=== PATIENT | female | born 1980 | race African-American/Black ===

== ENCOUNTER 2017-08-26 16:00 | Inpatient (IN) | payer BC ==
--- NOTE | 2017-09-09 11:01 | HP ---
HISTORY OF PRESENT ILLNESS: Ms. Nuno is a 36-year-old female with history of sinha bmucosal uterine fibroid on ultrasound. She has had a previous tubal ligation. She has been having increasingly heavy menstrual cycles that have resulted with anemia with hemoglobin documented of 10. She did consider possible endometrial ablation with fibroid resection, but now desires definitive sinha rgical therapy. PAST MEDICAL HISTORY: Depression for which she is on bupropion. PAST SURGICAL HISTORY: A tubal ligation. OB HISTORY: Two spontaneous vaginal deliveries. SOCIAL HISTORY: Nontobacco, minimal alcohol use. She is employed. Currently . ALLERGIES: She has no known drug allergies. FAMILY HISTORY: Hypertension in her father, heart disease in her father, grandmother had breast canc er. PHYSICAL EXAMINATION: VITAL SIGNS: Her blood pressure is 120/80, pulse rate 66, respirations 18, height 64 inches with a w eight of 141. BMI 24.2. HEENT: Within normal limits. CHEST: Clear to auscultation. HEART: Regular rate and rhythm. S1, S2 heart sounds, no murmurs, rubs or gallops. ABDOMEN: Soft, nontender, no palpable masses. PELVIC: Vulva and vagina had no lesions. Her uterus is approximately 8-10 weeks size. Cervix had n o lesions. Pap smear obtained 2017 was negative and negative HPV. Adnexa were nontender with no mas ses. Pelvic ultrasound showed uterus measuring 8 x 4.9 cm, fibroid 2.5 x 2.5 cm with the endometrial cavity, endometrium is also noted 8 mm, right and left ovaries were seen which were normal in appear ance. CURRENT MEDICATIONS: Meloxicam 7.5 mg daily as needed, bupropion 150 mg daily. ASSESSMENT: This is a 36-year-old female, , with prior tubal ligation, now wit h symptomatic uterine fibroids with menorrhagia and dysmenorrhea. The patient is desiring definitive surgical therapy. We planned for a robotic total laparoscopic hysterectomy with bilateral salpingec ayan. Risks and complications of procedure have been discussed at her preop visit and she is set for surgery on 09/15/2017.
[2017-09-09 13:07] VITALS: BMI 24.0
[2017-09-15] MEDS ORDERED: CeleCOXIB 100 MG CAP ONE ×2 (05:57→06:00)
[2017-09-15] MEDS ORDERED: Famotidine/PF 20 mg/2ml Vial ONE ×2 (05:57→05:58)
[2017-09-15] MEDS ORDERED: Gabapentin 300 MG CAP ONE (05:57)
[2017-09-15] MEDS ORDERED: CEFAZOLIN/Water 2 GM/20 ML SYRINGE ONE (05:58)
[2017-09-15] MEDS ORDERED: Fentanyl 250 MCG/5 ML VIAL ONE (06:08)
[2017-09-15] MEDS ORDERED: Lidocaine 2% Jelly 5 ML TUBE ONE (06:08)
[2017-09-15] MEDS ORDERED: Ondansetron HCl/PF 4 MG/2 ML Vial ONE ×2 (06:08→11:57)
[2017-09-15] MEDS ORDERED: Midazolam HCl 2 mg/2 ml Vial ONE ×2 (06:08→07:20)
[2017-09-15] MEDS ORDERED: Bupivacaine HCl 0.5%/Epinephrine 1:200,000/PF 30 ml Vial ONE (06:33)
[2017-09-15] MEDS ORDERED: Bisacodyl 10 MG SUPP PR PRN (09:36)
[2017-09-15] MEDS ORDERED: traMADol HCl 50 MG TAB PO PRN ×2 (09:36)
[2017-09-15] MEDS ORDERED: Zolpidem Tartrate 5 MG TAB PO PRN (09:36)
[2017-09-15] MEDS ORDERED: Simethicone Chewable 80 MG TAB PO PRN (09:36)
[2017-09-15] MEDS ORDERED: Ondansetron HCl/PF 4 MG/2 ML Vial IVP PRN (09:36)
[2017-09-15] MEDS ORDERED: Morphine 5 MG/ML SYRINGE SLOW IVP PRN (09:36)
[2017-09-15] MEDS ORDERED: diphenhydrAMINE 25 MG CAP PO PRN (09:36)
[2017-09-15] MEDS ORDERED: Promethazine HCl 25 MG/ML VIAL IM PRN (09:36)
[2017-09-15] MEDS ORDERED: Fentanyl 100 MCG/2 ML VIAL ONE (09:57)
--- NOTE | 2017-09-15 10:12 | OP ---
DATE OF PROCEDURE: 09/15/2017 PREOPERATIVE DIAGNOSES: 1. A 36-year-old -[place] female with symptomatic 12-week uterine fibroids with menorrhagia and resulting anemia from chronic blood loss. 2. Desires definitive surgical therapy. POSTOPERATIVE DIAGNOSES: 1. A 36-year-old -[place] female with symptomatic 12-week uterine fibroids with menorrhagia and resulting anemia from chronic blood loss. 2. Desires definitive surgical therapy. PROCEDURES PERFORMED: Robotic total laparoscopic hysterectomy and bilateral salpingectomy. SURGEON: Sherlyn Bonilla M.D. LICENSED AND CERTIFIED MIDWIFE: Keaton Madrigal M.D. ANESTHESIA: General endotracheal. ESTIMATED BLOOD LOSS: 50 mL. COMPLICATIONS: None. PATHOLOGY: Uterus, tubes, bilateral fallopian tubes and cervix. ANTIBIOTICS: Two grams of Ancef outside installation machinist to the OR. FINDINGS: 1. Normal appearing bilateral ovaries and remnant of fallopian tubes, previous tubal ligation. 2. A 10-week size uterus with intramural fibroid noted and subserosal fibroid seen. 3. Clear urine present in Rivera catheter post-procedure and bilateral ureteral peristalsis noted pos t-procedure. DISPOSITION: To the recovery room stable. DESCRIPTION OF OPERATIVE PROCEDURE: Patient previously received informed consent in regards to the s urgery. She was taken back to the operating room where she received a general endotracheal anestheti c agent without complications. She was placed in the dorsal lithotomy position with the use of Leo stirrups and prepped and draped in usual sterile fashion. A Rivera catheter was placed and a side-ar m speculum was placed in the vagina. The anterior lip of cervix was grasped with a single-tooth naa culum. The uterus sounded to 9 cm. A size 8 cm MALU uterine manipulator 4.0 cm cervical cup was the n fitted and placed. Tenaculum and speculum were then removed. Attention was then turned to the abd omen where perspective trocar sites were infiltrated with 0.5% Marcaine with epinephrine. A 12 mm sinha praumbilical incision was made and a Veress needle entered to the peritoneal cavity. Patient's press ure was noted to be less than 5 mm. Abdomen was insufflated to patient pressure of 15, approximately 4 liters of carbon dioxide gas. Veress needle was then removed. A size 12 [address] was then place d. Laparoscope was introduced through the trocar sleeve confirming proper entry. An additional bila teral lower quadrant 8 mm robotic trocars were placed under laparoscopic guidance along with 11 mm ri ght upper quadrant assistant food service manager port. The patient was then placed in Trendelenburg position and then th e robot was docked in usual fashion. I proceeded to carry out the surgery from the operative console and my assistants remained at the bedside. The uterus was elevated in the pelvis and the previously mentioned findings were noted. The left fallopian tube was grasped at the fimbria by my assistant food service manager a nd bipolar fenestrated cautery was utilized to coagulate the mesosalpinx and the monopolar scissors w ere utilized to incise under the tube along the cauterized mesosalpinx, removing the fallopian tube t hrough the right upper quadrant assistant food service manager port. Left uteroovarian ligament was coagulated and transe cted in serial coagulation transection of the uterine broad ligament, hugging close to uterus was car ried down to the left round ligament was reached. It was coagulated and transected. Anterior leaf o f the broad ligament was entered and the vesicouterine peritoneum was dissected and transected in a l ayering technique dropping the bladder atraumatically past the cervical vaginal angle, which was visu alized in the intention of the cervical cup. Uterine vessels were then skeletonized. They were then cauterized at the internal cervical os region. This was then repeated in likewise fashion on the pa travisnt's right side again starting by excising the fallopian tube, coagulating and transecting the torres martinez roovarian ligament and serial coagulation of broad ligament, hugging close to the specimen to the rig ht lower round ligament was reached. It was coagulated and transected. The anterior leaf of the bro ad ligament was entered and it was then transected in a layering technique dropping the bladder atrau matically past the cervical vaginal angle. Uterine vessels again were skeletonized in a layering roxanna hnique dropping the ureter were lateral from the internal cervical os region. The vessels were then coagulated internal cervical os region and transected. The anterior colpotomy was then performed sta rting 12 to 3 and 12 to 9 o'clock position and then the vessels at 3 and 9 o'clock position were coag ulated with bipolar fenestrated cautery and the posterior colpotomy was completed from 6 to 3 and 6 t o 9 in likewise fashion and monopolar scissors. The specimen was removed and placed in the vaginal v jovanny to secure pneumoperitoneum. The vaginal cuff was inspected and cauterized remaining areas of bleeding for hemostasis. The monopo lar scissors had been switched with ely needle transit mixer driver. Stratafix suture was then utilized to close the vaginal cuff in full thickness closure starting in the right angle of the vaginal cuff into the m idline. The needle of the suture broke and that was retrieved out through the surgical asst sit e. An additional Stratafix suture was then brought in and the left angle was then started to be clos ed full thickness closure in running continuous fashion with double layer closure of vaginal cuff wit h Stratafix securing hemostasis. The suture needle was then removed through the right upper quadrant assistant food service manager port. The pelvis was irrigated and suctioned and pedicle sites were inspected. Hemostasi s was confirmed. Rivera catheter was draining clear urine. Bilateral ureteral peristalsis was visual ized. Again, hemostasis down the pedicle sites and vaginal cuff were confirmed. The excess carbon d ioxide gas was released from the abdomen after the robot had been undocked. Trocars were removed. A deep stitch of [id number] suture of 0 Vicryl was placed in the supraumbilical fascial defect. The remainder of the sites were closed with 4-0 Monocryl subcuticular and Dermabond. The vaginal cuf f was inspected with a sponge stick and hemostasis of the vaginal cuff vaginally was confirmed. Surg katie was terminated and the patient was awakened from her anesthesia and transferred to the recovery r oom in stable condition.
[2017-09-15] MEDS ORDERED: HYDROmorphone 0.5 MG/0.5 ML SYRINGE ONE (10:18)
[2017-09-15] MEDS: Lactated Ringer's 1,000 ML IV SCH ×2 (11:54→20:58)
[2017-09-15] MEDS: Acetaminophen 1,000 MG in Premix Bag 1 BAG IVPB SCH ×2 (11:54→18:07)
[2017-09-15] MEDS ORDERED: Glycopyrrolate 0.2 MG/ML 5 ML SYRINGE ONE (11:57)
[2017-09-15] MEDS ORDERED: Dexamethasone 20 MG/5 ML VIAL ONE (11:57)
[2017-09-15] MEDS ORDERED: PROPOFOL 200 MG/20 ML VIAL ONE (11:57)
[2017-09-15] MEDS ORDERED: Lidocaine 1% PF 5 ML VIAL ONE (11:57)
[2017-09-15] MEDS: Ibuprofen 800 MG TAB PO SCH ×2 (14:09→22:35)
[2017-09-16] MEDS: Acetaminophen 1,000 MG in Premix Bag 1 BAG IVPB SCH ×2 (00:39→05:31)
[2017-09-16] MEDS: Ibuprofen 800 MG TAB PO SCH (05:30)
[2017-09-16] MEDS: Lactated Ringer's 1,000 ML IV SCH (05:31)
[2017-09-16 05:49] LABS: Mean Corpuscular HGB CONC 33.6 g/dL (32.0-36.0); Mean Corpuscular Hemoglobin 32.7 pg (27.0-31.0); Mean Corpuscular Volume 97.2 fl (81.0-99.0); Mean Platelet Volume 6.3 fL (7.4-10.4); Platelet Count 295 thou/uL (130-400); RBC Distribution Width 11.9 % (11.5-14.5); Red Blood Cell (RBC) Count 3.04 mill/uL (4.20-5.40); White Blood Cell (WBC) Count 8.5 thou/uL (4.8-10.8)
[2017-09-16 08:45] VITALS: BP 115/63; TEMP 99
--- NOTE | 2017-09-16 09:52 | PDOC.PP ---
Post Progress Note Post Day #: 1 PO intake tolerated: yes Flatus: yes Ambulation: yes Vital Signs (12 hours) Temp Pulse Resp BP Pulse Ox 09/16/17 08:45 99.0 F 72 20 09/16/17 08:44 99.0 F 72 20 115/63 09/16/17 05:25 99.1 F 60 16 116/67 99 09/16/17 00:35 99.1 F 84 16 98/57 L 99 Weight Weight 140 lb - Physical Examination General: NAD Respiratory: clear to auscultation bilaterally, non-labored breathing Abdominal: + bowel sounds (trochar sites clean/dry/intact) Result Diagrams: 09/16/17 05:35 - Assessment/Plan doing well post op day 1 from robotic [facility] d/c home/ f/u 2 and 6 weeks.
--- NOTE | 2017-09-16 10:31 | OP ---
DATE OF PROCEDURE: 09/15/2017 PREOPERATIVE DIAGNOSES: A 36-year-old female, G2, P2 with tubal ligation with 10-we ek symptomatic uterine fibroids, menorrhagia with resulting anemia, dysmenorrhea. POSTOPERATIVE DIAGNOSES: A 36-year-old female, G2, P2 with tubal ligation with 10-w [place] symptomatic uterine fibroids, menorrhagia with resulting anemia, dysmenorrhea. PROCEDURE: Robotic total laparoscopic hysterectomy and removal of bilateral tubal segments. SURGEON: Sherlyn oBnilla M.D. PROFESSOR OF ECONOMICS SURGEON: Keaton Madrigal M.D. ANESTHESIA: General endotracheal. ESTIMATED BLOOD LOSS: 500 mL COMPLICATIONS: None. COUNTS: Correct x2. ANTIBIOTICS: Two grams Ancef academic services professional to the OR. FINDINGS: 1. Normal-appearing bilateral ovaries and fallopian tube segments. 2. 10-week size uterus with subserosal and intramural fibroid noted. 3. Clear urine present in Rivera catheter post-procedure and bilateral ureteral peristalsis noted pos t-procedure. DISPOSITION: To the recovery room, stable. DESCRIPTION OF OPERATIVE PROCEDURE: The patient previously received informed consent in regard to sinha [facility]. She was taken back to the operating room where she received a general endotracheal anesthetic agent without complications. She was placed in the dorsal lithotomy position with use of Leo stir rups, prepped and draped in the usual sterile fashion. At this time, a side-arm speculum was placed in the vagina after Rivera catheter had been placed. The anterior lip of cervix grasped with single t ooth tenaculum. Uterus sounded to 9 cm. A size 8 cm MALU uterine manipulator with a 4.0 cm cervical . .
--- NOTE | 2017-09-17 00:19 | DIS ---
DIAGNOSES: 1. Symptomatic 10-week uterine fibroids. 2. Menorrhagia with resulting anemia from chronic blood loss. PROCEDURES PERFORMED: Robotic total laparoscopic hysterectomy and bilateral salpingectomy. SUMMARY OF HOSPITAL COURSE: Ms. Nuno is a 36-year-old -[place] female with history of he adolph menstrual bleeding. She was noted to have a 4-5 cm intramural cavitary to the fibroids seen on u ltrasound. She was offered endometrial ablation therapy to decide for definitive surgical therapy. She underwent an uncomplicated robotic hysterectomy on 09/15/2017. Postoperatively, she has done wel l. Vital signs remained stable. She advanced her diet and tolerated it well. She is ambulating and voiding without difficulty on the afternoon of the surgery. Her postoperative hematocrit was 29.6%, hemoglobin of 10 with minimal drop from the preop value of 10.6. She was discharged home on the mor courtney of postop day #1. DISCHARGE MEDICATIONS: Will be [id number]-ucfylrm ibuprofen as directed and tramadol 50 mg q.6 hours p .r.n. as needed. FOLLOWUP: She has a followup in 2 and 6 weeks postoperatively. Pathology is pending at the time of discharge.
== END 2017-09-16 12:47 | disposition home or self-care (01) | DRG 743 ==
LOC: OBSVTOIN 09-15 05:34 → INTOOBSV 09-15 05:34 → SURG A 09-15 05:34 → 3SW 09-15 10:26 → EEVIPCON 09-15 14:30 → EDSTATUS 09-15 14:30
PROVIDERS: ADMIT Obstetrics & Gynecology; ATTEND Obstetrics & Gynecology
PROC: 0UT9FZZ Resection of Uterus, Via Natural or Artificial Opening With Percutaneous Endoscopic Assistance (ICD-10-PCS; principal; 2017-09-15)
PROC: 0UT7FZZ Resection of Bilateral Fallopian Tubes, Via Natural or Artificial Opening With Percutaneous Endoscopic Assistance (ICD-10-PCS; 2017-09-15)
PROC: 8E0W4CZ Robotic Assisted Procedure of Trunk Region, Percutaneous Endoscopic Approach (ICD-10-PCS; 2017-09-15)
DX: N92.0 Excessive and frequent menstruation with regular cycle (principal); D25.0 Submucous leiomyoma of uterus; F32.9 Major depressive disorder, single episode, unspecified; N94.6 Dysmenorrhea, unspecified; D50.0 Iron deficiency anemia secondary to blood loss (chronic); Z98.51 Tubal ligation status
CPT/HCPCS: 36415; 85027; 88307; 96374; J2270; A4216; J0131; J0670; J1100; J1170; J2001; J2250; J2405; J2704; J3010; S0028

== ENCOUNTER 2017-09-09 12:22 | Outpatient (CLI) | payer BC ==
[2017-09-09 13:26] LABS: Hemoglobin 10.6 g/dL (12.0-16.0); Mean Corpuscular HGB CONC 33.6 g/dL (32.0-36.0); Mean Corpuscular Hemoglobin 32.6 pg (27.0-31.0); Mean Platelet Volume 6.6 fL (7.4-10.4); Platelet Count 364 thou/uL (130-400); RBC Distribution Width 11.9 % (11.5-14.5); Red Blood Cell (RBC) Count 3.26 mill/uL (4.20-5.40); White Blood Cell (WBC) Count 4.4 thou/uL (4.8-10.8)
[2017-09-09 14:25] LABS: BHCG - Serum Negative (NEGATIVE); Pregs Control Background? CLEAR/WHITE (CLR/WHITE); Pregs Control Bar Appear? YES (CONTROL BAR)
== END 2017-09-09 12:23 | disposition home or self-care (01) ==
LOC: LABBT 12:22
PROVIDERS: ATTEND Obstetrics & Gynecology
DX: Z01.812 Encounter for preprocedural laboratory examination (principal); D25.0 Submucous leiomyoma of uterus; N92.0 Excessive and frequent menstruation with regular cycle
CPT/HCPCS: 84703; 85027; 86850; 86900; 86901